=== PATIENT | male | born 1980 | race African-American/Black ===

== ENCOUNTER 2020-04-23 16:40 | Emergency (ER) | payer MEDICAID ==
[~2020-04-23] VITALS: Ht 175.3 cm; Wt 109.1 kg
[~2020-04-23 16:40] MED LIST: NOCURR
[2020-04-23] MEDS ORDERED: LIDOCAINE/PF 1% 2 ML VIAL IM ONE (17:30)
[2020-04-23] MEDS ORDERED: HYDROCODONE/ACETAMINOPHEN 5-325 MG TABLET PO ONE (17:30)
[2020-04-23] MEDS ORDERED: CefTRIAXone SODIUM 1 GM/VIAL IM ONE (17:30)
[2020-04-23 17:59] VITALS: BP 130/75
== END 2020-04-23 18:32 | disposition home or self-care (01) ==
LOC: EMS 16:40
DX: K04.7 Periapical abscess without sinus (principal); F17.210 Nicotine dependence, cigarettes, uncomplicated; F12.90 Cannabis use, unspecified, uncomplicated
CPT/HCPCS: 96372; 99283; J0696; J3490